=== PATIENT | female | born 1955 | race Two or more races ===

== ENCOUNTER 2021-09-10 09:06 | Outpatient (CLI) | payer OTHER | END 2021-09-10 09:20 | disposition home or self-care (01) | LOC: MAMO-SONO 09:06 | DX: R92.1 Mammographic calcification found on diagnostic imaging of breast (principal); N60.12 Diffuse cystic mastopathy of left breast; Z12.31 Encounter for screening mammogram for malignant neoplasm of breast; N64.4 Mastodynia ==